=== PATIENT | female | born 1935 | race Caucasian/White ===

== ENCOUNTER 2019-09-07 | Day surgery (SDC) | payer MEDICARE ==
[~2019-09-07] MED LIST: ADVAIR DISK1 IN; GABAPENTIN300 M2 PO; LASIX 40 MG TAB40 MG PO; LEVOTHYROXIN88 MC1 PO; MELOXICAM7.5 MG PO; METFORMIN500 M2 PO; MULTIVITAMI1 PO; PROTONIX20 M1 PO; ROPINIROLE2 MG PO; SG ASA LOW81 M1 PO; SIMVASTATIN40 MG PO
[2019-09-07] MEDS ORDERED: ASPIRIN325 MG PO (12:40)
[2019-09-07] MEDS ORDERED: CLINDAMYCIN HC150 MG PO (12:40)
[2019-09-07] MEDS ORDERED: PERCOCET 10/31 COMBO PO (12:40)
[2019-09-07] MEDS ORDERED: ZOFRAN4 MG/TAB PO (12:40)
== END 2019-09-07 13:40 | disposition home or self-care (01) ==
PROC: 0QBQ0ZZ Excision of Right Toe Phalanx, Open Approach (ICD-10-PCS; principal; 2019-09-07)
PROC: 0QBQ0ZZ Excision of Right Toe Phalanx, Open Approach (ICD-10-PCS; 2019-09-07)
DX: M20.41 Other hammer toe(s) (acquired), right foot (principal); M77.51 Other enthesopathy of right foot and ankle; L84 Corns and callosities